=== PATIENT | female | born 1995 | race Caucasian/White ===

== ENCOUNTER 2017-05-21 10:01 | Emergency (ER) | payer OTHER ==
[~2017-05-21] VITALS: Ht 160 cm; Wt 61.7 kg
[2017-05-21 10:16] VITALS: BP 102/62
--- NOTE | 2017-05-21 10:23 | NUR ---
Patient ambulated to bed 8. RN evaluating patient at bedside.
--- NOTE | 2017-05-21 10:24 | NUR ---
PATIENT PRESENTS TO ED WITH right swollen foot x 3 days . PT STATES she was walking when she twisted her ankle . DENIES N/V/D; SKIN IS PINK/WARM/DRY; AAOX4 WITH EVEN AND STEADY GAIT; PT DENIES ANY FEVER, CP, SOB, OR COUGH AT THIS TIME; PATIENT STATES PAIN OF 5/10 AT THIS TIME; VSS; PATIENT POSITIONED FOR COMFORT; HOB ELEVATED; BEDRAILS UP X1; BED DOWN. Family at bediside. ER MD MADE AWARE OF PT STATUS.
--- NOTE | 2017-05-21 10:37 | NUR ---
patient taken to xray via wheelchair by maintenance tech
--- NOTE | 2017-05-21 11:16 | NUR ---
ODILON wrap placed on right ankle. Patient discharged with v/s stable. Written and verbal after care instructions given and explained. Patient verbalized understanding. Wheel Chair Assisted by family to car. All questions addressed prior to discharge. Advised to follow up with PMD.
[2017-05-21 11:21] VITALS: BP 102/62
== END 2017-05-21 11:16 | disposition home or self-care (01) ==
LOC: MED 10:01
DX: S93.401A Sprain of unspecified ligament of right ankle, initial encounter (principal); W01.0XXA Fall on same level from slipping, tripping and stumbling without subsequent striking against object, initial encounter; Y93.89 Activity, other specified; Y92.89 Other specified places as the place of occurrence of the external cause; Y99.8 Other external cause status
CPT/HCPCS: 73610; 99284